=== PATIENT | female | born 1960 | race Caucasian/White ===

== ENCOUNTER 2016-08-07 06:44 | Emergency (ER) | payer OTHER ==
[2016-08-07] MEDS ORDERED: IPRATROPIUM/ALBUTEROL 0.5-2.5 MG/3 ML AMPUL NEB ONE (08:15)
[2016-08-07] MEDS ORDERED: PREDNISONE 20 MG TABLET PO ONE (08:15)
[2016-08-07] MEDS ORDERED: NORMAL SALINE 1000 ML 1,000 ML IV ONE (08:17)
[2016-08-07] MEDS ORDERED: ONDANSETRON HCL INJ/PF 4 MG/2 ML SDV IV ONE (08:17)
--- NOTE | 2016-08-07 08:18 | ER Document Report ---
ED General - General Chief Complaint: General Weakness Stated Complaint: WEAKNESS/CANT EAT Time Seen by Provider: 08/07/16 08:09 Mode of Arrival: Ambulatory Information source: Patient Notes: Patient presents complaining of occasionally productive cough, generalized weakness, and feeling sick off and on for the past 2 weeks. Patient complains of nausea with decreased appetite. Patient denies any vomiting, diarrhea, or abdominal pain. Patient reports subjective fever 2 days ago but none since then. TRAVEL OUTSIDE OF THE [place] IN LAST 30 DAYS: No - HPI Onset: Other - 2 weeks Onset/Duration: Waxing and waning Quality of pain: No pain Pain Level: Denies Associated symptoms: Productive cough - Occasionally, Fever - 2 days ago, Nausea , Weakness. 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 Lives with: Family Family History: Reviewed & Not Pertinent Patient has suicidal ideation: No Patient has homicidal ideation: No - Past Medical History Cardiac Medical History: Pulmonary Medical History: Reports: Hx Asthma, Hx COPD Neurological Medical History: Endocrine Medical History: Reports: Hx Diabetes Mellitus Type 2 Renal/ Medical History: Denies: Hx Peritoneal Dialysis Musculoskeltal Medical History: Past Surgical History: Reports: Hx Section, Hx Orthopedic Surgery - Immunizations Hx Pneumococcal Vaccination: 03/29/12 Review of Systems - Review of Systems Constitutional: Fever - 2 days ago, Weakness EENT: Nose congestion Cardiovascular: No symptoms reported. denies: Chest pain Respiratory: Cough, Sputum, Wheezing. denies: Short of breath Gastrointestinal: Nausea. denies: Abdominal pain, Diarrhea, Vomiting Genitourinary: No symptoms reported. denies: Dysuria, Discharge, Flank pain Female Genitourinary: No symptoms reported Musculoskeletal: No symptoms reported. denies: Back pain Skin: No symptoms reported Hematologic/Lymphatic: No symptoms reported Neurological/Psychological: No symptoms reported Physical Exam - Vital signs Vitals: Temp Pulse Resp BP Pulse Ox 98.6 F 106 H 18 118/78 93 08/07/16 06:48 08/07/16 06:48 08/07/16 06:48 08/07/16 06:48 08/07/16 06:48 - General General appearance: Appears well, Alert In distress: None - HEENT Head: Normocephalic, Atraumatic Eyes: Normal Conjunctiva: Normal Nasal: Swelling, Clear rhinorrhea Mouth/Lips: Normal Mucous membranes: Normal Pharynx: Normal Neck: Normal, Supple. No: Lymphadenopathy, Meningismus - Respiratory Respiratory status: No respiratory distress Chest status: Nontender Breath sounds: Nonproductive cough, Wheezing Chest palpation: Normal - Cardiovascular Rhythm: Regular Heart sounds: S1 appreciated, S2 appreciated Murmur: No - Abdominal Inspection: Normal Distension: No distension Bowel sounds: Normal Tenderness: Nontender Organomegaly: No organomegaly - Back Back: Normal, Nontender. No: CVA tenderness - Extremities General upper extremity: Normal inspection, Normal strength General lower extremity: Normal inspection, Normal strength - Neurological Neuro grossly intact: Yes Cognition: Normal Nina Coma Scale Eye Opening: Spontaneous Nina Coma Scale Verbal: Oriented [place] Coma Scale Motor: Obeys Commands Nina Coma Scale Total: 15 - Psychological Associated symptoms: Normal affect, Normal mood - Skin Skin Temperature: Warm Skin Moisture: Dry Skin Color: Normal Course - Re-evaluation Re-evalutation: 08/07/16 09:30 Patient with decreased wheezing bilaterally and improved air movement. Wheezing continues with coughing. Patient reports that nausea has resolved. Discussed worsening signs or symptoms that patient should return immediately for. Patient verbalized understanding and agrees with plan of care. Consult with Dr. wheeler regarding patient presentation and diagnostic evaluation. EKG reviewed. Agrees with discharge plan of care 08/07/16 09:31 - Vital Signs Vital signs: Temp Pulse Resp BP Pulse Ox 98.6 F 106 H 18 118/78 93 08/07/16 06:48 08/07/16 06:48 08/07/16 06:48 08/07/16 06:48 08/07/16 06:48 - Laboratory Result Diagrams: 08/07/16 08:27 08/07/16 08:27 Laboratory results interpreted by me: 08/07/16 08/07/16 08:27 08:27 RBC 5.48 H Hgb 16.1 H Hct 49.1 H RDW 14.7 H Plt Count 134 L Monocytes % 13.8 H Glucose 124 H Labs- Entire Visit 08/07/16 08/07/16 08/07/16 08:27 08:27 08:27 WBC 6.0 RBC 5.48 H Hgb 16.1 H Hct 49.1 H MCV 90 MCH 29.4 MCHC 32.8 RDW 14.7 H Plt Count 134 L Seg Neutrophils % 70.9 Lymphocytes % 14.5 Monocytes % 13.8 H Eosinophils % 0.3 Basophils % 0.5 Absolute Neutrophils 4.3 Absolute Lymphocytes 0.9 Absolute Monocytes 0.8 Absolute Eosinophils 0.0 Absolute Basophils 0.0 Sodium 141.3 Potassium 4.3 Chloride 101 Carbon Dioxide 27 Anion Gap 13 BUN 16 Creatinine 0.61 Est GFR ( Amer) > 60 Est GFR (Non-Af Amer) > 60 Glucose 124 H Calcium 9.7 Total Bilirubin 0.6 Direct Bilirubin 0.4 Indirect Bilirubin Not Reportable Neonat Total Bilirubin Not Reportable AST 33 ALT 35 Alkaline Phosphatase 68 Total Protein 7.2 Albumin 4.5 Urine Color STRAW Urine Appearance CLEAR Urine pH 5.0 Ur Specific Monitor 1.005 Urine Protein NEGATIVE Urine Glucose (UA) NEGATIVE Urine Ketones NEGATIVE Urine Blood NEGATIVE Urine Nitrite NEGATIVE Urine Bilirubin NEGATIVE Urine Urobilinogen NEGATIVE Ur Leukocyte Esterase NEGATIVE Urine WBC (Auto) 2 Urine RBC (Auto) 0 Urine Mucus (Auto) RARE Urine Ascorbic Acid NEGATIVE 08/07/16 09:39 - Diagnostic Test Radiology reviewed: Reports reviewed Discharge - Discharge Clinical Impression: Nausea, Weakness COPD (chronic obstructive pulmonary disease) Qualifiers: COPD type: unspecified COPD Qualified Code(s): J44.9 - Chronic obstructive pulmonary disease, unspecified Condition: Stable Disposition: HOME, SELF-CARE Instructions: Chronic Obstructive Lung Disease ([facility]), Steroid Medication, Inhaled Bronchodilators ([facility]), Antinausea Medication ([facility]) Additional Instructions: Return immediately for any new or worsening symptoms Followup with your primary care provider, call tomorrow to make a followup appointment Prescriptions: Albuterol Sulfate [Ventolin Hfa] 2 puff IH Q4HP PRN #17 gm PRN Reason: Ondansetron HCl [Zofran 4 mg Tablet] 1 - 2 tab PO Q6 PRN #15 tablet PRN Reason: Prednisone [Deltasone 20 mg Tablet] 2 tab PO DAILY 4 Days Forms: Return to Work Referrals: RANJEET KAMARA PA-C [Primary Care Provider] - Follow up tomorrow
[2016-08-07] MEDS: ALBUTEROL SULFATE 0.083% NEB 2.5 MG/3 ML AMPUL NEB SCH ×2 (08:35→09:15)
[2016-08-07 08:47] LABS: ABSOLUTE LYMPHOCYTES (AUTO) 0.9 10^3/uL (0.5-4.7); ABSOLUTE MONOCYTES (AUTO) 0.8 10^3/uL (0.1-1.4); ABSOLUTE NEUT (AUTO) 4.3 10^3/uL (1.7-8.2); BASOPHILS % (AUTO) 0.5 % (0-2); EOSINOPHILS % (AUTO) 0.3 % (0-6); HEMATOCRIT 49.1 % (36.0-47.0); HEMOGLOBIN 16.1 g/dL (12.0-15.5); HGB HCT DIFFERENCE -0.8; LYMPHOCYTES % (AUTO) 14.5 % (13-45); MEAN CORPUSCULAR HEMOGLOBIN 29.4 pg (27.0-33.4); MEAN CORPUSCULAR HGB CONC 32.8 g/dL (32.0-36.0); MEAN CORPUSCULAR VOLUME 90 fl (80-97); MONOCYTES % (AUTO) 13.8 % (3-13); RED BLOOD COUNT 5.48 10^6/uL (3.72-5.28); RED CELL DISTRIBUTION WIDTH 14.7 % (11.5-14.0); SEGMENTED NEUTROPHILS % (AUTO) 70.9 % (42-78)
[2016-08-07 08:55] LABS: APPEARANCE,URINE CLEAR; BILIRUBIN,URINE NEGATIVE (NEGATIVE); GLUCOSE, URINE NEGATIVE (NEGATIVE); KETONES,URINE NEGATIVE (NEGATIVE); LEUKOCYTE ESTERASE,URINE NEGATIVE (NEGATIVE); NITRITE,URINE NEGATIVE (NEGATIVE); PROTEIN,URINE NEGATIVE (NEGATIVE); URINE SPECIFIC GRAVITY 1.005; UROBILINOGEN,URINE NEGATIVE mg/dL (<2.0)
[2016-08-07 09:04] LABS: ALANINE AMINOTRANSFERASE 35 U/L (9-52); ALBUMIN 4.5 g/dL (3.5-5.0); ALKALINE PHOSPHATASE 68 U/L (38-126); ANION GAP 13 (5-19); ASPARTATE AMINO TRANSFERASE 33 U/L (14-36); BILIRUBIN,DIRECT 0.4 mg/dL (0.0-0.4); BILIRUBIN,TOTAL 0.6 mg/dL (0.2-1.3); BLOOD UREA NITROGEN 16 mg/dL (7-20); CALCIUM 9.7 mg/dL (8.4-10.2); CARBON DIOXIDE 27 mmol/L (22-30); CHLORIDE 101 mmol/L (98-107); CREATININE RESULT 0.61 mg/dL (0.52-1.25); GLUCOSE 124 mg/dL (75-110); POTASSIUM 4.3 mmol/L (3.6-5.0); SODIUM 141.3 mmol/L (137-145); TOTAL PROTEIN 7.2 g/dL (6.3-8.2)
[2016-08-07 09:43] VITALS: BP 92/61
--- NOTE | 2016-08-07 11:32 | EKG REPORT ---
SEVERITY:- ABNORMAL ECG - SINUS RHYTHM RIGHT ATRIAL ABNORMALITY LEFT AXIS DEVIATION ST DEPRESSION, CONSIDER ISCHEMIA, INF LEADS : Confirmed by: Simeon Peres 07-Aug-2016 11:31:16
== END 2016-08-07 09:43 | disposition home or self-care (01) ==
LOC: ER 06:44
DX: R53.1 Weakness (principal); R11.0 Nausea; J44.9 Chronic obstructive pulmonary disease, unspecified; R05 Cough; R63.0 Anorexia; F17.200 Nicotine dependence, unspecified, uncomplicated; E11.9 Type 2 diabetes mellitus without complications; R09.81 Nasal congestion; J34.89 Other specified disorders of nose and nasal sinuses
CPT/HCPCS: 93005; 94640 ×2; 99285; 96374; 36415; 85025; 80053; 81001; 71020; 93010; J7512; J2405; J7030; J7620

== ENCOUNTER 2017-07-16 10:34 | Emergency (ER) | payer OTHER ==
--- NOTE | 2017-07-16 11:02 | ER Document Report ---
ED Medical Screen (RME) - General Chief Complaint: Chest Pain Stated Complaint: CHEST PAIN Time Seen by Provider: 07/16/17 10:52 Notes: Patient presents with intermittent right sided chest wall pain that radiates into her right scapula that started approximately the 13th of this month of June. Patient states that she also has more shortness of breath than normal on exertion. No history of heart attack or strokes. She has no family history of heart or strokes either. She does not take any blood thinners. She has not had any recent fevers or illnesses. She is a daily smoker and has been having a cough but this is baseline for her. She has not experienced this type of pain before and was unable to get an appointment with for evaluation. I have greeted and performed a rapid initial assessment of this patient. A comprehensive ED assessment and evaluation of the patient, analysis of test results and completion of the medical decision making process will be conducted by additional ED providers. PHYSICAL EXAMINATION: GENERAL: Well-appearing, well-nourished and in no acute distress. HEAD: Atraumatic, normocephalic. EYES: Pupils equal round extraocular movements intact, conjunctiva are normal. ENT: Nares patent NECK: Normal range of motion LUNGS: No respiratory distress Musculoskeletal: Normal range of motion NEUROLOGICAL: Normal speech, normal gait. PSYCH: Normal mood, normal affect. SKIN: Warm, Dry, normal turgor, no rashes or lesions noted. TRAVEL OUTSIDE OF THE [place] IN LAST 30 DAYS: No - Related Data Allergies/Adverse Reactions: No Known Allergies Allergy (Verified 07/16/17 10:51) Past Medical History - Social History Chew tobacco use (# tins/day): No Frequency of alcohol use: None Drug Abuse: None - Past Medical History Cardiac Medical History: Pulmonary Medical History: Reports: Hx Asthma, Hx COPD Neurological Medical History: Endocrine Medical History: Reports: Hx Diabetes Mellitus Type 2 Renal/ Medical History: Denies: Hx Peritoneal Dialysis Musculoskeltal Medical History: Past Surgical History: Reports: Hx Section, Hx Orthopedic Surgery Physical Exam - Vital signs Vitals: Temp Pulse Resp BP Pulse Ox 98.7 F 82 18 124/75 96 07/16/17 10:47 07/16/17 10:47 07/16/17 10:47 07/16/17 10:47 07/16/17 10:47 Course - Vital Signs Vital signs: Temp Pulse Resp BP Pulse Ox 98.7 F 82 18 124/75 96 07/16/17 10:47 07/16/17 10:47 07/16/17 10:47 07/16/17 10:47 07/16/17 10:47
[2017-07-16] MEDS ORDERED: ASPIRIN 81 MG TABLET, CHEWABLE PO ONE (11:12)
--- NOTE | 2017-07-16 11:14 | ER Document Report ---
ED Cardiac - General Chief Complaint: Chest Pain Stated Complaint: CHEST PAIN Time Seen by Provider: 07/16/17 10:52 Mode of Arrival: Ambulatory Information source: Patient Notes: Patient presents complaining of left-sided chest pain that radiates to left shoulder off and on for the past week. Patient states that she typically has about 2 episodes of chest pain the last about 30 minutes. Patient states that she does have some shortness of breath on exertion and reports she has chronic cough due to her COPD. Patient states that she came in today because she was unable to get an appointment with her primary doctor until next week. Patient denies any fever. Patient denies any nausea or vomiting. Patient presently denies any chest pain symptoms at this time. TRAVEL OUTSIDE OF THE [place] IN LAST 30 DAYS: No - HPI Patient complains to provider of: Chest pain Chest pain location: Under breast Quality of pain: Tightness Pain level currently: 3 Chest pain precipitating factors: At Rest Cardiac risk factors: Hypertension, Smoker Associated symptoms: Shortness of breath - With exertion. 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 denies: Fever, Recent illness EENT: No symptoms reported Cardiovascular: Chest pain, Orthopnea. denies: Dizziness Respiratory: Cough, Short of breath - With exertion Gastrointestinal: No symptoms reported. denies: Abdominal pain, Diarrhea, Nausea, Vomiting Genitourinary: No symptoms reported Female Genitourinary: No symptoms reported Musculoskeletal: No symptoms reported. denies: Back pain Skin: No symptoms reported Hematologic/Lymphatic: No symptoms reported Neurological/Psychological: No symptoms reported Physical Exam - Vital signs Vitals: Temp Pulse Resp BP Pulse Ox 98.7 F 82 18 124/75 96 07/16/17 10:47 07/16/17 10:47 07/16/17 10:47 07/16/17 10:47 07/16/17 10:47 - General General appearance: Appears well, Alert In distress: None - HEENT Head: Normocephalic, Atraumatic Eyes: Normal Conjunctiva: Normal Nasal: Normal Mouth/Lips: Normal Mucous membranes: Normal Pharynx: Normal Neck: Normal, Supple. No: Lymphadenopathy - Respiratory Respiratory status: No respiratory distress Chest status: Nontender Breath sounds: Normal. No: Rales, Rhonchi, Stridor, Wheezing Chest palpation: Normal - Cardiovascular Rhythm: Regular Heart sounds: S1 appreciated, S2 appreciated Murmur: No - Abdominal Inspection: Normal Distension: No distension Bowel sounds: Normal Tenderness: Nontender Organomegaly: No organomegaly - Back Back: Normal, Nontender. No: CVA tenderness - Extremities General upper extremity: Normal inspection, Normal strength General lower extremity: Normal inspection, Normal strength. No: Edema - Neurological Neuro grossly intact: Yes Cognition: Normal Nina Coma Scale Eye Opening: Spontaneous [place] Coma Scale Verbal: Oriented Nina Coma Scale Motor: Obeys Commands Nina Coma Scale Total: 15 - Psychological Associated symptoms: Normal affect, Normal mood - Skin Skin Temperature: Warm Skin Moisture: Dry Skin Color: Normal Course - Re-evaluation Re-evalutation: 07/16/17 13:51 Patient continues to deny any chest pain symptoms, vital signs stable. Patient without any dyspnea at this time. Patient denies any worsening of cough or sputum production. Patient states she does have her inhaler and nebulizer medications at home. Consulted with Dr. Verma regarding patient presentation , reviewed diagnostic test results. Agrees with discharge plan of care. The patient has atypical chest pain as the patient's chest pain is not suggestive of pulmonary embolus, cardiac ischemia, aortic dissection, or other serious etiology. Given the extremely low risk of these diagnoses for the test in evaluation for these possibilities does not appear to be indicated at this time. Patient has been instructed to return if the symptoms worsen or change in any way. Patient with a heart score of 2 for age and risk factors. - Vital Signs Vital signs: Temp Pulse Resp BP Pulse Ox 98.7 F 82 18 118/70 94 07/16/17 10:47 07/16/17 10:47 07/16/17 14:01 07/16/17 14:01 07/16/17 14:01 - Laboratory Result Diagrams: 07/16/17 11:25 07/16/17 12:52 Laboratory results interpreted by me: 07/16/17 07/16/17 11:25 12:52 RDW 15.3 H Creatine Kinase 149 H Labs- Entire Visit 07/16/17 07/16/17 07/16/17 11:25 11:25 11:25 WBC 7.7 RBC 4.97 Hgb 15.1 Hct 44.0 MCV 88 MCH 30.3 MCHC 34.3 RDW 15.3 H Plt Count 227 Seg Neutrophils % 63.4 Lymphocytes % 26.5 Monocytes % 8.3 Eosinophils % 0.6 Basophils % 1.2 Absolute Neutrophils 4.9 Absolute Lymphocytes 2.0 Absolute Monocytes 0.6 Absolute Eosinophils 0.0 Absolute Basophils 0.1 Sodium Cancelled Potassium Cancelled Chloride Cancelled Carbon Dioxide Cancelled Anion Gap Cancelled BUN Cancelled Creatinine Cancelled Est GFR ( Amer) Cancelled Est GFR (Non-Af Amer) Cancelled Glucose Cancelled Calcium Cancelled Magnesium Cancelled Total Bilirubin Cancelled Direct Bilirubin Cancelled Neonat Total Bilirubin Cancelled Neonat Direct Bilirubin Cancelled Neonat Indirect Bili Cancelled AST Cancelled ALT Cancelled Alkaline Phosphatase Cancelled Creatine Kinase Cancelled CK-MB (CK-2) 1.98 Troponin I < 0.012 Total Protein Cancelled Albumin Cancelled 07/16/17 12:52 WBC RBC Hgb Hct MCV MCH MCHC RDW Plt Count Seg Neutrophils % Lymphocytes % Monocytes % Eosinophils % Basophils % Absolute Neutrophils Absolute Lymphocytes Absolute Monocytes Absolute Eosinophils Absolute Basophils Sodium 144.3 Potassium 4.3 Chloride 105 Carbon Dioxide 28 Anion Gap 11 BUN 14 Creatinine 0.63 Est GFR ( Amer) > 60 Est GFR (Non-Af Amer) > 60 Glucose 104 Calcium 9.8 Magnesium 2.3 Total Bilirubin 0.3 Direct Bilirubin 0.3 Neonat Total Bilirubin Not Reportable Neonat Direct Bilirubin Not Reportable Neonat Indirect Bili Not Reportable AST 25 ALT 28 Alkaline Phosphatase 59 Creatine Kinase 149 H CK-MB (CK-2) Troponin I Total Protein 6.7 Albumin 4.2 - Diagnostic Test Radiology reviewed: Reports reviewed - EKG Interpretation by Me EKG shows normal: Sinus rhythm Rate: Normal Discharge - Discharge Clinical Impression: COPD exacerbation Chest pain Qualifiers: Chest pain type: unspecified Qualified Code(s): R07.9 - Chest pain, unspecified Condition: Stable Disposition: HOME, SELF-CARE Instructions: Chronic Obstructive Lung Disease ([facility]), Chest Pain of Unclear Cause ([facility]), Steroid Medication Additional Instructions: Return immediately for any new or worsening symptoms Followup with your primary care provider, call tomorrow to make a followup appointment Follow-up with a party plan demonstrator for further evaluation, call tomorrow for an appointment Prescriptions: Prednisone [Deltasone 20 mg Tablet] 2 tab PO DAILY 5 Days tablet Forms: Smoking Cessation Education, Return to Work Referrals: RANJEET KAMARA PA-C [Primary Care Provider] - Follow up as needed KINJAL PALACIO MD [ACTIVE STAFF] - Follow up as needed
[2017-07-16 11:45] LABS: ABSOLUTE BASOPHILS # (AUTO) 0.1 10^3/uL (0.0-0.2); ABSOLUTE MONOCYTES (AUTO) 0.6 10^3/uL (0.1-1.4); ABSOLUTE NEUT (AUTO) 4.9 10^3/uL (1.7-8.2); BASOPHILS % (AUTO) 1.2 % (0-2); EOSINOPHILS % (AUTO) 0.6 % (0-6); HEMOGLOBIN 15.1 g/dL (12.0-15.5); LYMPHOCYTES % (AUTO) 26.5 % (13-45); MEAN CORPUSCULAR HEMOGLOBIN 30.3 pg (27.0-33.4); MEAN CORPUSCULAR HGB CONC 34.3 g/dL (32.0-36.0); MEAN CORPUSCULAR VOLUME 88 fl (80-97); MONOCYTES % (AUTO) 8.3 % (3-13); PLATELET COUNT 227 10^3/uL (150-450); RED BLOOD COUNT 4.97 10^6/uL (3.72-5.28); RED CELL DISTRIBUTION WIDTH 15.3 % (11.5-14.0); SEGMENTED NEUTROPHILS % (AUTO) 63.4 % (42-78); TOTAL CELLS COUNTED % (AUTO) 100 %; WHITE BLOOD COUNT 7.7 10^3/uL (4.0-10.5)
[2017-07-16 12:19] LABS: CREATINE KINASE MB 1.98 ng/mL (<4.55)
[2017-07-16 12:20] LABS: TROPONIN I < 0.012 ng/mL
--- NOTE | 2017-07-16 12:30 | RADIOLOGY REPORT (SQ) ---
EXAM DESCRIPTION: CHEST 2 VIEWS COMPLETED DATE/TIME: 07/16/2017 12:16 pm REASON FOR STUDY: cp COMPARISON: 08/07/2016. NUMBER OF VIEWS: Two view. TECHNIQUE: Frontal and lateral radiographic views of the chest acquired. LIMITATIONS: None. FINDINGS: LUNGS AND PLEURA: No opacities, masses or pneumothorax. No pleural effusion. Attenuated bl ood vessels and flattened gillian-diaphragms. MEDIASTINUM AND HILAR STRUCTURES: No masses. No contour abnormalities. HEART AND VASCULAR STRUCTURES: Heart normal in size and contour. No evidence for failure. BONES: No acute findings. HARDWARE: None in the chest. OTHER: No other significant finding. IMPRESSION: COPD. NO ACUTE RADIOGRAPHIC FINDING IN THE CHEST. TECHNICAL DOCUMENTATION: JOB ID: [id number] [employer] All Rights Reserved Reading location - IP/workstation name: [email or web address]
[2017-07-16 13:27] LABS: ALANINE AMINOTRANSFERASE 28 U/L (9-52); ALBUMIN 4.2 g/dL (3.5-5.0); ALKALINE PHOSPHATASE 59 U/L (38-126); ANION GAP 11 (5-19); ASPARTATE AMINO TRANSFERASE 25 U/L (14-36); BILIRUBIN,DIRECT 0.3 mg/dL (0.0-0.4); BILIRUBIN,TOTAL 0.3 mg/dL (0.2-1.3); BLOOD UREA NITROGEN 14 mg/dL (7-20); CALCIUM 9.8 mg/dL (8.4-10.2); CARBON DIOXIDE 28 mmol/L (22-30); CHLORIDE 105 mmol/L (98-107); CREATINE KINASE 149 U/L (30-135); GLUCOSE 104 mg/dL (75-110); POTASSIUM 4.3 mmol/L (3.6-5.0); SODIUM 144.3 mmol/L (137-145); TOTAL PROTEIN 6.7 g/dL (6.3-8.2)
[2017-07-16 14:16] VITALS: BP 118/70
--- NOTE | 2017-07-16 21:12 | EKG REPORT ---
SEVERITY:- OTHERWISE NORMAL ECG - SINUS RHYTHM LEFT AXIS DEVIATION : Confirmed by: Simeon Peres 16-Jul-2017 21:12:06
== END 2017-07-16 14:15 | disposition home or self-care (01) ==
LOC: ER 10:34
DX: J44.1 Chronic obstructive pulmonary disease with (acute) exacerbation (principal); R07.9 Chest pain, unspecified; M25.512 Pain in left shoulder; F17.200 Nicotine dependence, unspecified, uncomplicated; E11.9 Type 2 diabetes mellitus without complications
CPT/HCPCS: 36415; 71046; 80053; 82550; 82553; 83735; 84484; 85025; 93005; 93010; 99285

== ENCOUNTER → 2018-06-14 | Outpatient (CLI) | payer OTHER ==
--- NOTE | 2018-06-14 10:31 | RADIOLOGY REPORT (SQ) ---
EXAM DESCRIPTION: CHEST PA/LATERAL COMPLETED DATE/TIME: 06/14/2018 10:18 am REASON FOR STUDY: COPD EXACERBATION COMPARISON: 07/16/2017 EXAM PARAMETERS: NUMBER OF VIEWS: two views TECHNIQUE: Digital Frontal and Lateral radiographic views of the chest acquired. RADIATION DOSE: NA LIMITATIONS: none FINDINGS: LUNGS AND PLEURA: COPD. Mildly prominent interstitial markings in the lungs, may be on a n acute inflammatory basis. . No acute pulmonary consolidation. No pneumothorax or pleural effusio n. MEDIASTINUM AND HILAR STRUCTURES: No masses or contour abnormalities. HEART AND VASCULAR STRUCTURES: Heart normal size. No evidence for failure. BONES: No acute findings. HARDWARE: None in the chest. OTHER: No other significant finding. IMPRESSION: 1. As on the prior study dated 07/16/2017, findings of COPD. The interstitial markings in the lungs are mildly prominent, findings may be on an acute inflammatory basis. TECHNICAL DOCUMENTATION: JOB ID: [id number] [employer]- All Rights Reserved Reading location - IP/workstation name: [email or web address]
== END ==
LOC: OD 09:54
PROVIDERS: ATTEND Physician Assistant
DX: J44.1 Chronic obstructive pulmonary disease with (acute) exacerbation (principal)
CPT/HCPCS: 71046

== ENCOUNTER 2018-06-19 20:43 | Emergency (ER) | payer OTHER ==
[2018-06-19 21:42] LABS: ABSOLUTE LYMPHOCYTES (AUTO) 0.7 10^3/uL (0.5-4.7); ABSOLUTE MONOCYTES (AUTO) 0.7 10^3/uL (0.1-1.4); ABSOLUTE NEUT (AUTO) 10.8 10^3/uL (1.7-8.2); BASOPHILS % (AUTO) 0.2 % (0-2); HEMATOCRIT 45.3 % (36.0-47.0); HEMOGLOBIN 15.2 g/dL (12.0-15.5); LYMPHOCYTES % (AUTO) 5.8 % (13-45); MEAN CORPUSCULAR HEMOGLOBIN 29.8 pg (27.0-33.4); MEAN CORPUSCULAR HGB CONC 33.6 g/dL (32.0-36.0); MEAN CORPUSCULAR VOLUME 89 fl (80-97); MONOCYTES % (AUTO) 5.8 % (3-13); PLATELET COUNT 364 10^3/uL (150-450); RED BLOOD COUNT 5.11 10^6/uL (3.72-5.28); RED CELL DISTRIBUTION WIDTH 15.1 % (11.5-14.0); SEGMENTED NEUTROPHILS % (AUTO) 88.2 % (42-78); TOTAL CELLS COUNTED % (AUTO) 100 %; WHITE BLOOD COUNT 12.3 10^3/uL (4.0-10.5)
[2018-06-19 22:00] LABS: ALANINE AMINOTRANSFERASE 23 U/L (9-52); ALBUMIN 4.2 g/dL (3.5-5.0); ALKALINE PHOSPHATASE 71 U/L (38-126); ANION GAP 11 (5-19); ASPARTATE AMINO TRANSFERASE 21 U/L (14-36); BILIRUBIN,DIRECT 0.1 mg/dL (0.0-0.4); BILIRUBIN,TOTAL 0.3 mg/dL (0.2-1.3); BLOOD UREA NITROGEN 19 mg/dL (7-20); CALCIUM 10.2 mg/dL (8.4-10.2); CARBON DIOXIDE 29 mmol/L (22-30); CHLORIDE 103 mmol/L (98-107); CREATINE KINASE 50 U/L (30-135); GLUCOSE 152 mg/dL (75-110); SODIUM 142.7 mmol/L (137-145); TOTAL PROTEIN 7.3 g/dL (6.3-8.2)
[2018-06-19 22:08] LABS: APPEARANCE,URINE CLEAR; BILIRUBIN,URINE NEGATIVE (NEGATIVE); COLOR,URINE YELLOW; GLUCOSE, URINE 50 mg/dL (NEGATIVE); KETONES,URINE NEGATIVE (NEGATIVE); LEUKOCYTE ESTERASE,URINE NEGATIVE (NEGATIVE); NITRITE,URINE NEGATIVE (NEGATIVE); PROTEIN,URINE NEGATIVE (NEGATIVE); URINE SPECIFIC GRAVITY 1.019; UROBILINOGEN,URINE NEGATIVE mg/dL (<2.0)
--- NOTE | 2018-06-19 22:21 | RADIOLOGY REPORT (SQ) ---
EXAM DESCRIPTION: XR CHEST 1 VIEW COMPLETED DATE/TME: 06/19/2018 21:10 CLINICAL HISTORY: 57 years, Female, recent pna dx COMPARISON: 06/14/2018 chest NUMBER OF VIEWS: 1 TECHNIQUE: Portable chest LIMITATIONS: None FINDINGS: Heart size normal. Lungs are hyperinflated but clear. No pneumothorax. IMPRESSION: Underlying hyperinflation. Lungs are clear copyright 2010 [employer]- All Rights Reserved
[2018-06-19] MEDS ORDERED: PREDNISONE 20 MG TABLET PO ONE (23:44)
[2018-06-19] MEDS ORDERED: BENZONATATE 100 MG CAPSULE PO ONE (23:44)
--- NOTE | 2018-06-19 23:45 | ER Document Report ---
ED General - General Chief Complaint: Breathing Difficulty Stated Complaint: DIFFICULTY BREATHING Time Seen by Provider: 06/19/18 21:47 Primary Care Provider: RANJEET KAMARA PA-C [Primary Care Provider] - Follow up tomorrow Notes: Patient is a 57-year-old female with a past medical history of COPD, 2 L oxygen dependency at baseline, presents complaining of 2 weeks of cough, shortness of breath, sinus congestion and feeling generally unwell. Symptoms started gradually, have been constant since that time. She has seen her primary care doctor regarding this concern, was given intramuscular injection of steroids and antibiotics with states this has not improved her symptoms. Her main concern is the persistent fever cough as well as the failure of her symptoms to resolve over the past 2 weeks. She has not had fever. Denies any increased sputum production. No hemoptysis. She does continue to smoke. She has been using nebulizers with minimal improvement of symptoms. Smoking and exertion seem to worsen her symptoms. TRAVEL OUTSIDE OF THE [place] IN LAST 30 DAYS: No - Related Data Allergies/Adverse Reactions: No Known Allergies Allergy (Verified 07/16/17 10:51) Past Medical History - General Information source: Patient - Social History Smoking Status: Current Every Day Smoker Chew tobacco use (# tins/day): No Frequency of alcohol use: None Drug Abuse: None Lives with: Spouse/Significant other Family History: Reviewed & Not Pertinent Patient has suicidal ideation: No Patient has homicidal ideation: No - Past Medical History Cardiac Medical History: Pulmonary Medical History: Reports: Hx Asthma, Hx COPD Neurological Medical History: Endocrine Medical History: Reports: Hx Diabetes Mellitus Type 2 Renal/ Medical History: Denies: Hx Peritoneal Dialysis Musculoskeletal Medical History: Past Surgical History: Reports: Hx Section, Hx Orthopedic Surgery - Immunizations Hx Pneumococcal Vaccination: 03/29/12 Review of Systems - Review of Systems Notes: Constitutional: Negative for fever. HENT: Negative for sore throat. Eyes: Negative for visual changes. Cardiovascular: Negative for chest pain. Respiratory: Positive for shortness of breath and cough Gastrointestinal: Negative for abdominal pain, vomiting or diarrhea. Genitourinary: Negative for dysuria. Musculoskeletal: Negative for back pain. Skin: Negative for rash. Neurological: Negative for headaches, weakness or numbness. 10 point ROS negative except as marked above and in HPI. Physical Exam - Vital signs Vitals: Temp Pulse Resp BP Pulse Ox 98.5 F 96 24 H 134/75 H 95 06/19/18 20:52 06/19/18 20:52 06/19/18 20:52 06/19/18 20:52 06/19/18 20:52 Interpretation: Tachypneic Notes: PHYSICAL EXAMINATION: GENERAL: Well-appearing, well-nourished and in no acute distress. HEAD: Atraumatic, normocephalic. EYES: Pupils equal round and reactive to light, extraocular movements intact, sclera anicteric, conjunctiva are normal. ENT: nares patent, oropharynx clear without exudates. Moderately dry mucous membranes. NECK: Normal range of motion, supple without lymphadenopathy LUNGS: Breath sounds clear to auscultation bilaterally and equal. Scant expiratory wheezing in all lung samuel. HEART: Regular rate and rhythm without murmurs ABDOMEN: Soft, nontender, normoactive bowel sounds. No guarding, no rebound. No masses appreciated. EXTREMITIES: Normal range of motion, no pitting or edema. No cyanosis. NEUROLOGICAL: No focal neurological deficits. Moves all extremities spontaneously and on command. PSYCH: Normal mood, normal affect. SKIN: Warm, Dry, normal turgor, no rashes or lesions noted. Course - Re-evaluation Re-evalutation: 06/19/18 23:44 Patient presents with a mild exacerbation of their baseline COPD. Mild wheezing at time of presentation but vitals do not show significant hypoxemia or tachypnea. No retractions. Patient did clinically improve after receiving nebulizers here in the emergency department. Chest x-ray without evidence of an acute pneumonia. Laboratories do not show acute kidney injury or significant leukocytosis. Patient able to ambulate without any respiratory distress. Based on patient's overall reassuring assessment, I believe they are stable for outpatient management with steroids. Patient has nebulizers at home. I do not suspect an acute alternative pathology at this time based on history and exam including acute pulmonary embolus, ACS, pneumothorax, or aortic dissection. At this time will discharge with return precautions and follow-up recommendations. Verbal discharge instructions given a the bedside and opportunity for questions given. Medication warnings reviewed. Patient is in agreement with this plan and has verbalized understanding of return precautions and the need for primary care follow-up in the next 24-72 hours. - Vital Signs Vital signs: Temp Pulse Resp BP Pulse Ox 98.5 F 96 20 105/61 95 06/19/18 20:52 06/19/18 20:52 06/20/18 00:01 06/20/18 00:00 06/20/18 00:01 - Laboratory Result Diagrams: 06/19/18 21:23 06/19/18 21:23 Laboratory results interpreted by me: 06/19/18 06/19/18 06/19/18 21:23 21:23 21:44 WBC 12.3 H RDW 15.1 H Seg Neutrophils % 88.2 H Lymphocytes % 5.8 L Absolute Neutrophils 10.8 H Glucose 152 H Urine Glucose (UA) 50 H - Diagnostic Test Radiology reviewed: Image reviewed, Reports reviewed Radiology results interpreted by me: 06/19/18 23:44 Chest x-ray: No acute infiltrate pneumothorax Discharge - Discharge Clinical Impression: COPD exacerbation, Bronchitis Condition: Good Disposition: HOME, SELF-CARE Additional Instructions: You were seen for a COPD exacerbation. Your symptoms improved with treatment here in the emergency department. However, it is very important that you return to the emergency department immediately if you began to have worsening difficulty breathing that does not respond to your normal home nebulizers. You are also being sent home on a five-day course of steroids that you should start taking tomorrow. Please also follow closely with your primary care physician. You should eturn to emergency department if you develop fever greater than 101, persistent cough, persistent vomiting, pass out, or any other symptoms that are concerning to you. Prescriptions: Benzonatate [Tessalon Perles 100 mg Capsule] 100 mg PO Q8HP PRN #40 capsule PRN Reason: Prednisone [Deltasone 20 mg Tablet] 2 tab PO DAILY 5 Days tablet Referrals: RANJEET KAMARA PA-C [Primary Care Provider] - Follow up tomorrow
[2018-06-20 00:24] VITALS: BP 105/61
--- NOTE | 2018-06-20 21:22 | EKG REPORT ---
SEVERITY:- ABNORMAL ECG - SINUS RHYTHM VENTRICULAR PREMATURE COMPLEX NONSPECIFIC T ABNORMALITIES, LATERAL LEADS : Confirmed by: Jeri Del Cid MD 20-Jun-2018 21:21:25
== END 2018-06-20 00:50 | disposition home or self-care (01) ==
LOC: ER 20:43
DX: J44.1 Chronic obstructive pulmonary disease with (acute) exacerbation (principal); Z99.81 Dependence on supplemental oxygen; R05 Cough; R06.02 Shortness of breath; R09.81 Nasal congestion; E11.9 Type 2 diabetes mellitus without complications; F17.200 Nicotine dependence, unspecified, uncomplicated
CPT/HCPCS: 93005; 99285; 36415; 82553; 82550; 85025; 80053; 81001; 71045; 93010; J7512

== ENCOUNTER → 2018-06-24 | Outpatient (CLI) | payer OTHER | LOC: OD 09:25 | PROVIDERS: ATTEND Internal Medicine Critical Care Medicine | DX: J44.9 Chronic obstructive pulmonary disease, unspecified (principal); R06.09 Other forms of dyspnea; R09.02 Hypoxemia; Z72.0 Tobacco use | CPT/HCPCS: 36415; 82103; 82104; 82785; 83880 ==

== ENCOUNTER 2019-04-14 10:16 | Observation (INO) | payer OTHER ==
[2019-04-14] MEDS ORDERED: IPRATROPIUM/ALBUTEROL 0.5-2.5 MG/3 ML AMPUL NEB ONE ×2 (10:27→11:31)
--- NOTE | 2019-04-14 10:30 | ER Document Report ---
ED Medical Screen (RME) - General Chief Complaint: Chest Pain Stated Complaint: CHEST CONGESTION/COUGH/DIFFICULTY BREATHING Time Seen by Provider: 04/14/19 10:20 Primary Care Provider: BARBER MONSON MD [Primary Care Provider] - Follow up as needed Mode of Arrival: Wheelchair Information source: Patient Notes: 58-year-old female with history of COPD presents emergency department with complaints of chest tightness difficulty breathing shortness of breath reports she does not feel good for the past few days.. Denies vomiting diarrhea reports fever for the last 2 days, none today. Patient reports she does use home oxygen on occasion and also has neb treatments. Patient is very tearful. Tachypneic, tight, short of breath with any exertion or talking. O2 sat 93% when she is not talking, drops down to 86% when talking. I have greeted and performed a rapid initial assessment of this patient. A comprehensive ED assessment and evaluation of the patient, analysis of test results and completion of the medical decision making process will be conducted by additional ED providers. TRAVEL OUTSIDE OF THE [place] IN LAST 30 DAYS: No - Related Data Allergies/Adverse Reactions: No Known Allergies Allergy (Verified 04/14/19 10:22) Past Medical History - Past Medical History Cardiac Medical History: Pulmonary Medical History: Reports: Hx Asthma, Hx COPD Neurological Medical History: Endocrine Medical History: Reports: Hx Diabetes Mellitus Type 2 Renal/ Medical History: Denies: Hx Peritoneal Dialysis Musculoskeltal Medical History: Past Surgical History: Reports: Hx Section, Hx Orthopedic Surgery Physical Exam - Vital signs Vitals: Temp Pulse Resp BP Pulse Ox 99.8 F 107 H 24 H 146/83 H 93 04/14/19 10:04/14/19 10:04/14/19 10:04/14/19 10:04/14/19 10:23 Course - Vital Signs Vital signs: Temp Pulse Resp BP Pulse Ox 99.8 F 107 H 24 H 146/83 H 93 04/14/19 10:23 04/14/19 10:23 04/14/19 10:04/14/19 10:23 04/14/19 10:23 Doctor's Discharge - Discharge Referrals: BARBER MONSON MD [Primary Care Provider] - Follow up as needed
[2019-04-14 11:05] LABS: ABSOLUTE LYMPHOCYTES (AUTO) 0.9 10^3/uL (0.5-4.7); ABSOLUTE NEUT (AUTO) 6.2 10^3/uL (1.7-8.2); BASOPHILS % (AUTO) 0.5 % (0-2); EOSINOPHILS % (AUTO) 0.2 % (0-6); HEMATOCRIT 43.2 % (36.0-47.0); HEMOGLOBIN 14.8 g/dL (12.0-15.5); LYMPHOCYTES % (AUTO) 10.6 % (13-45); MEAN CORPUSCULAR HEMOGLOBIN 30.8 pg (27.0-33.4); MEAN CORPUSCULAR HGB CONC 34.2 g/dL (32.0-36.0); MEAN CORPUSCULAR VOLUME 90 fl (80-97); MONOCYTES % (AUTO) 12.8 % (3-13); PLATELET COUNT 161 10^3/uL (150-450); SEGMENTED NEUTROPHILS % (AUTO) 75.9 % (42-78); TOTAL CELLS COUNTED % (AUTO) 100 %; WHITE BLOOD COUNT 8.1 10^3/uL (4.0-10.5)
[2019-04-14 11:35] LABS: ALBUMIN 4.3 g/dL (3.5-5.0); ALKALINE PHOSPHATASE 70 U/L (38-126); ANION GAP 9 (5-19); ASPARTATE AMINO TRANSFERASE 30 U/L (14-36); BILIRUBIN,DIRECT 0.4 mg/dL (0.0-0.4); BILIRUBIN,TOTAL 0.7 mg/dL (0.2-1.3); BLOOD UREA NITROGEN 13 mg/dL (7-20); CALCIUM 9.3 mg/dL (8.4-10.2); CARBON DIOXIDE 28 mmol/L (22-30); CHLORIDE 105 mmol/L (98-107); GLUCOSE 125 mg/dL (75-110); POTASSIUM 3.8 mmol/L (3.6-5.0); TOTAL PROTEIN 7.2 g/dL (6.3-8.2)
--- NOTE | 2019-04-14 11:42 | RADIOLOGY REPORT (SQ) ---
EXAM DESCRIPTION: CHEST SINGLE VIEW COMPLETED DATE/TIME: 04/14/2019 11:33 am REASON FOR STUDY: cp sob hx copd COMPARISON: 06/19/2018 EXAM PARAMETERS: NUMBER OF VIEWS: One view. TECHNIQUE: Single frontal radiographic view of the chest acquired. RADIATION DOSE: NA LIMITATIONS: None. FINDINGS: LUNGS AND PLEURA: Hyperexpansion of the lungs. No acute infiltrate, effusion, or mass. MEDIASTINUM AND HILAR STRUCTURES: No masses. Contour normal. HEART AND VASCULAR STRUCTURES: Heart normal in size. Normal vasculature. BONES: No acute findings. HARDWARE: None in the chest. OTHER: No other significant finding. IMPRESSION: Chronic lung changes with no acute cardiopulmonary findings. TECHNICAL DOCUMENTATION: JOB ID: [id number] [employer]- All Rights Reserved Reading location - IP/workstation name: [email or web address]
[2019-04-14 11:48] LABS: INTERNATIONAL RATION (INR) 1.01; PROTHROMBIN TIME 13.3 SEC (11.4-15.4)
[2019-04-14] MEDS ORDERED: NORMAL SALINE 1000 ML 1,000 ML IV ONE ×2 (11:55→14:37)
[2019-04-14 12:40] LABS: VENOUS BLOOD BASE EXCESS 1.4 mmol/L; VENOUS BLOOD HCO3 26.7 mmol/L (20-32); VENOUS BLOOD PCO2 44.7 mmHg (35-63); VENOUS BLOOD PH 7.39 (7.30-7.42)
[2019-04-14 13:11] LABS: A TYPE INFLUENZA AG NEGATIVE (NEGATIVE); B INFLUENZA AG NEGATIVE (NEGATIVE)
[2019-04-14] MEDS ORDERED: METHYLPREDNISOLONE INJ 125 MG/2 ML SDV IV ONE (13:11)
[2019-04-14] MEDS: MAGNESIUM SULFATE/D5W 1 GM/100 ML RTUPB IV SCH ×3 (13:19→15:58)
[2019-04-14] MEDS ORDERED: LEVOFLOXACIN 750 MG/D5W RTU 750 MG/150 ML RTUPB IV ONE (14:01)
--- NOTE | 2019-04-14 14:46 | ER Document Report ---
ED Respiratory Problem - General Chief Complaint: Chest Pain Stated Complaint: CHEST CONGESTION/COUGH/DIFFICULTY BREATHING Time Seen by Provider: 04/14/19 10:20 Mode of Arrival: Wheelchair Notes: Patient is a 58-year-old female who has had cough and congestion over the last week. Patient with difficulty breathing since yesterday. History of COPD. States fever 103 earlier in the week. Unsure if she was positive for influenza. Patient used her inhaler at home but is still having difficulty breathing. Nonproductive cough. Denies any chest pain. TRAVEL OUTSIDE OF THE [place] IN LAST 30 DAYS: No - Related Data Allergies/Adverse Reactions: No Known Allergies Allergy (Verified 04/14/19 10:22) Past Medical History - General Information source: Patient - Social History Smoking Status: Current Every Day Smoker Family History: Reviewed & Not Pertinent Patient has suicidal ideation: No Patient has homicidal ideation: No - Past Medical History Cardiac Medical History: Pulmonary Medical History: Reports: Hx Asthma, Hx COPD Neurological Medical History: Endocrine Medical History: Reports: Hx Diabetes Mellitus Type 2 Renal/ Medical History: Denies: Hx Peritoneal Dialysis Musculoskeletal Medical History: Past Surgical History: Reports: Hx Section, Hx Orthopedic Surgery - Immunizations Hx Pneumococcal Vaccination: 03/29/12 Review of Systems - Review of Systems -: Yes All other systems reviewed and negative Physical Exam - Vital signs Vitals: Temp Pulse Resp BP Pulse Ox 99.8 F 107 H 24 H 146/83 H 93 04/14/19 10:23 04/14/19 10:23 04/14/19 10:23 04/14/19 10:23 04/14/19 10:23 Interpretation: Normal - General General appearance: Alert In distress: Mild - HEENT Head: Normocephalic, Atraumatic Eyes: Normal Pupils: PERRL - Respiratory Respiratory status: Respiratory distress Chest status: Nontender Breath sounds: Decreased air movement, Wheezing Chest palpation: Normal - Cardiovascular Rhythm: Regular Heart sounds: Normal auscultation Murmur: No - Abdominal Inspection: Normal Distension: No distension Bowel sounds: Normal Tenderness: Nontender Organomegaly: No organomegaly - Back Back: Normal, Nontender - Extremities General upper extremity: Normal inspection, Nontender, Normal color, Normal ROM, Normal temperature General lower extremity: Normal inspection, Nontender, Normal color, Normal ROM, Normal temperature, Normal weight bearing. No: Tez's sign - Neurological Neuro grossly intact: Yes Cognition: Normal Orientation: AAOx4 Nina Coma Scale Eye Opening: Spontaneous [place] Coma Scale Verbal: Oriented Nina Coma Scale Motor: Obeys Commands Happy Jack Coma Scale Total: 15 Speech: Normal Motor strength normal: LUE, RUE, LLE, RLE Sensory: Normal - Psychological Associated symptoms: Normal affect, Normal mood - Skin Skin Temperature: Warm Skin Moisture: Dry Skin Color: Normal Course - Re-evaluation Re-evalutation: 04/14/19 Patient is a 58-year-old female who comes in with difficulty breathing, and wheezing. No evidence for pneumonia on chest x-ray. Patient has received nebulizer treatments, Solu-Medrol and magnesium. However, when she stands, becomes dyspneic and oxygen saturation drops below 80%. Given the symptoms, patient will require admission and further work-up for treatment of her COPD exacerbation. Patient will be admitted. Discussed with hospitalist. Stable at the time of admission. Patient is agreeable to this plan. - Vital Signs Vital signs: Temp Pulse Resp BP Pulse Ox 98.5 F 92 17 100/59 L 93 04/14/19 20:10 04/14/19 20:10 04/14/19 20:10 04/14/19 20:10 04/14/19 20:10 - Laboratory Result Diagrams: 04/14/19 10:53 04/14/19 10:53 Laboratory results interpreted by me: 04/14/19 04/14/19 10:53 10:53 RDW 15.0 H Lymph % (Auto) 10.6 L Glucose 125 H Critical Care Note - Critical Care Note Total time excluding time spent on procedures (mins): 35 - Evaluation and management of respiratory distress with multiple re-evaluations, consultation with hospitalist, coordination of admission Discharge - Discharge Clinical Impression: COPD exacerbation, Respiratory distress Condition: Stable Disposition: ADMITTED INPATIENT Admitting Provider: Delaney (Hospitalist) Unit Admitted: Telemetry
[2019-04-14] MEDS ORDERED: NICOTINE 14 MG/24 HR PATCH.TD24 TD PRN (15:16)
[2019-04-14] MEDS ORDERED: ALBUTEROL SULFATE 0.083% NEB 2.5 MG/3 ML AMPUL NEB PRN (15:17)
[2019-04-14] MEDS ORDERED: MAGNESIUM SULFATE/D5W 1 GM/100 ML RTUPB IV SCH (16:30)
[2019-04-14] MEDS ORDERED: INFLUENZA QUAD (6MOS+) 2019-20 VAC 0.5 ML SYR IM ONE (18:21)
[2019-04-14] MEDS: IPRATROPIUM/ALBUTEROL 0.5-2.5 MG/3 ML AMPUL NEB SCH (19:27)
--- NOTE | 2019-04-14 21:20 | EKG REPORT ---
SEVERITY:- ABNORMAL ECG - SINUS TACHYCARDIA BIATRIAL ABNORMALITIES LEFT AXIS DEVIATION CONSIDER RIGHT VENTRICULAR HYPERTROPHY : Confirmed by: Jeri Del Cid MD 14-Apr-2019 21:19:28
[2019-04-14] MEDS: HEPARIN SOD (PORCINE) 5,000 UNIT/ML 1 ML VIAL SUBCUT SCH (21:53)
[2019-04-14] MEDS: METHYLPREDNISOLONE INJ 40 MG/1 ML SDV IV SCH (21:54)
[2019-04-15] MEDS: IPRATROPIUM/ALBUTEROL 0.5-2.5 MG/3 ML AMPUL NEB SCH ×2 (01:55→07:57)
[2019-04-15] MEDS: HEPARIN SOD (PORCINE) 5,000 UNIT/ML 1 ML VIAL SUBCUT SCH (05:27)
[2019-04-15] MEDS: METHYLPREDNISOLONE INJ 40 MG/1 ML SDV IV SCH (05:27)
[2019-04-15] MEDS ORDERED: AZITHROMYCIN INJ 500 MG VIAL IV SCH (10:00)
[2019-04-15] MEDS ORDERED: AZITHROMYCIN 500 MG in DEXTROSE 5%-WATER 250 ML IV SCH (10:00)
[2019-04-15] MEDS ORDERED: AZITHROMYCIN 250 MG TABLET PO SCH (11:00)
[2019-04-15 11:18] VITALS: BP 100/59
--- NOTE | 2019-04-15 16:01 | PDOC H&P ---
History of Present Illness Admission Date/PCP: 04/14/19 14:50 RANJEET KAMARA PA-C Patient complains of: cough History of Present Illness: COLTEN JOHNSON is a 58 year old female with a past medical history of COPD (uses home O2 intermittently), diet-controlled diabetes mellitus and chronic cigarette smoking who presented with cough and shortness of breath. Patient says that she has been having increasingly productive cough since Wednesday. This was associated with increasing shortness of breath and wheezing to the point that she started having exertional dyspnea. She also reported subjective fever 2 days ago. She denies chest pain. She does report that she still smokes a pack of cigarettes a day. In the ER, she was noted to have tachypnea and bilateral wheezing. She was given IV steroids and breathing treatments with partial relief. Past Medical History Cardiac Medical History: Pulmonary Medical History: Reports: Asthma, Chronic Obstructive Pulmonary Disease (COPD) Neurological Medical History: Endocrine Medical History: Reports: Diabetes Mellitus Type 2 Musculoskeltal Medical History: Hematology: Past Surgical History Past Surgical History: Reports: Section, Orthopedic Surgery Social History Smoking Status: Current Every Day Smoker Frequency of Alcohol Use: Occasional Hx Recreational Drug Use: No Hx Prescription Drug Abuse: No Family History Family History: Reviewed & Not Pertinent Parental Family History Reviewed: Yes - no premature CAD Children Family History Reviewed: No Sibling(s) Family History Reviewed.: No Medication/Allergy Home Medications: Montelukast Sodium [Singulair 10 mg Tablet] 10 mg PO DAILY 07/16/17 Albuterol Sulfate [Proair HFA Inhalation Aerosol 8.5 gm MDI] 2 puff IH Q6HP PRN 04/14/19 Levocetirizine Dihydrochloride [Xyzal] 5 mg PO QHS 04/14/19 Umeclidinium Pinole [Incruse Ellipta] 1 inh IH DAILY 04/14/19 Albuterol Sulfate [Ventolin 0.083% Neb 2.5 mg/3 ml Ampul] 1 vial NEB Q8HP PRN 04/15/19 Fluticasone/Salmeterol [Advair HFA 230-21 mcg Inhaler] 1 puff IH BID #1 mdi 04/15/19 Fluticasone/Salmeterol [Advair HFA 230-21 mcg Inhaler] 2 puff IH Q12 04/15/19 Ipratropium/Albuterol Sulfate [Duoneb 3 ml Ampul] 3 ml NEB RTQ6HP PRN 04/15/19 Nicotine [Nicoderm 14 mg/24 Hr Transdermal Patch] 1 each TD DAILYP PRN #30 patch.[id number] 04/15/19 Olopatadine HCl 1 drop OU BID 04/15/19 Prednisone [Deltasone 20 mg Tablet] 20 mg PO BID 5 Days #10 tablet 04/15/19 Allergies/Adverse Reactions: No Known Allergies Allergy (Verified 04/14/19 10:22) Review of Systems All systems: reviewed and no additional remarkable complaints except as stated - As mentioned in HPI Physical Exam Vital Signs: Temp Pulse Resp BP Pulse Ox 99.8 F 107 H 29 H 109/70 94 04/14/19 10:23 04/14/19 10:23 04/14/19 11:01 04/14/19 11:01 04/14/19 11:01 Intake & Output 04/13/19 04/14/19 04/15/19 06:59 06:59 06:59 Intake Total 1000 Balance 1000 Weight 105 lb 9.623 oz General appearance: PRESENT: no acute distress, well-developed, well-nourished Head exam: PRESENT: atraumatic, normocephalic Eye exam: PRESENT: conjunctiva pink, EOMI, PERRLA. ABSENT: scleral icterus Ear exam: PRESENT: normal external ear exam Mouth exam: PRESENT: moist, tongue midline Neck exam: ABSENT: carotid bruit, JVD, lymphadenopathy, thyromegaly Respiratory exam: PRESENT: rhonchi, wheezes. ABSENT: rales Cardiovascular exam: PRESENT: RRR. ABSENT: diastolic murmur, rubs, systolic murmur Pulses: PRESENT: normal dorsalis pedis pul GI/Abdominal exam: PRESENT: normal bowel sounds, soft. ABSENT: distended, gu arding, mass, organolmegaly, rebound, tenderness Rectal exam: PRESENT: deferred Extremities exam: PRESENT: full ROM. ABSENT: calf tenderness, clubbing, pedal edema Neurological exam: PRESENT: alert, awake, oriented to person, oriented to place, oriented to time, oriented to situation, CN II-XII grossly intact. ABSENT: mot or sensory deficit Results Laboratory Results: 04/14/19 10:53 04/14/19 10:53 04/14/19 04/14/19 04/14/19 10:53 10:53 12:25 WBC 8.1 RBC 4.80 Hgb 14.8 Hct 43.2 MCV 90 MCH 30.8 MCHC 34.2 RDW 15.0 H Plt Count 161 Seg Neutrophils % 75.9 VBG pH VBG pCO2 VBG HCO3 VBG Base Excess Sodium 142.1 Potassium 3.8 Chloride 105 Carbon Dioxide 28 Anion Gap 9 BUN 13 Creatinine 0.52 Est GFR ( Amer) > 60 Glucose 125 H Lactic Acid 1.2 Calcium 9.3 Total Bilirubin 0.7 AST 30 Alkaline Phosphatase 70 Total Protein 7.2 Albumin 4.3 04/14/19 04/14/19 12:25 13:50 WBC RBC Hgb Hct MCV MCH MCHC RDW Plt Count Seg Neutrophils % VBG pH 7.39 VBG pCO2 44.7 VBG HCO3 26.7 VBG Base Excess 1.4 Sodium Potassium Chloride Carbon Dioxide Anion Gap BUN Creatinine Est GFR ( Amer) Glucose Lactic Acid 1.6 Calcium Total Bilirubin AST Alkaline Phosphatase Total Protein Albumin 04/14/19 04/14/19 10:53 13:50 Troponin I < 0.012 < 0.012 Impressions: Chest X-Ray 04/14/19 10:27 IMPRESSION: Chronic lung changes with no acute cardiopulmonary findings. Assessment and Plan - Diagnosis (1) COPD exacerbation Is this a current diagnosis for this admission?: Yes Plan: Continue IV steroids with Solu-Medrol 40 mg IV every 8. Start scheduled breathing treatments. Will add azithromycin. Sputum culture ordered. (2) Diabetes Is this a current diagnosis for this admission?: Yes Plan: Reports she has been off diabetic medications as this has been diet-controlled. (3) Tobacco abuse Is this a current diagnosis for this admission?: Yes Plan: Patient advised in length about smoking cessation. We will have her on nicotine patch. - Time Time Spent with patient: 25-34 minutes
--- NOTE | 2019-04-15 16:14 | PDOC DISCHARGE SUMMARY ---
Impression - Admit/DC Date/PCP Admission Date/Primary Care Provider: 04/14/19 14:50 RANJEET KAMARA PA-C Discharge Date: 04/15/19 - Discharge Diagnosis (1) COPD exacerbation Is this a current diagnosis for this admission?: Yes (2) Diabetes Is this a current diagnosis for this admission?: Yes (3) Tobacco abuse Is this a current diagnosis for this admission?: Yes - Additional Information Resuscitation Status: Full Code Discharge Diet: As Tolerated Discharge Activity: Activity As Tolerated Referrals: BARBER MONSON MD [[facility] STAFF] - Follow up as needed Prescriptions: Fluticasone/Salmeterol [Advair HFA 230-21 mcg Inhaler] 1 puff IH BID #1 mdi Prednisone [Deltasone 20 mg Tablet] 20 mg PO BID 5 Days #10 tablet Nicotine [Nicoderm 14 mg/24 Hr Transdermal Patch] 1 each TD DAILYP PRN #30 patch.td24 PRN Reason: Home Medications: Montelukast Sodium [Singulair 10 mg Tablet] 10 mg PO DAILY 07/16/17 Albuterol Sulfate [Proair HFA Inhalation Aerosol 8.5 gm MDI] 2 puff IH Q6HP PRN 04/14/19 Levocetirizine Dihydrochloride [Xyzal] 5 mg PO QHS 04/14/19 Umeclidinium [place] [Incruse Ellipta] 1 inh IH DAILY 04/14/19 Albuterol Sulfate [Ventolin 0.083% Neb 2.5 mg/3 ml Ampul] 1 vial NEB Q8HP PRN 04/15/19 Fluticasone/Salmeterol [Advair HFA 230-21 mcg Inhaler] 1 puff IH BID #1 mdi 04/15/19 Fluticasone/Salmeterol [Advair HFA 230-21 mcg Inhaler] 2 puff IH Q12 04/15/19 Ipratropium/Albuterol Sulfate [Duoneb 3 ml Ampul] 3 ml NEB RTQ6HP PRN 04/15/19 Nicotine [Nicoderm 14 mg/24 Hr Transdermal Patch] 1 each TD DAILYP PRN #30 patch.td24 04/15/19 Olopatadine HCl 1 drop OU BID 04/15/19 Prednisone [Deltasone 20 mg Tablet] 20 mg PO BID 5 Days #10 tablet 04/15/19 History of Present Illiness History of Present Illness: COLTEN JOHNSON is a 58 year old female with a past medical history of COPD (uses home O2 intermittently), diet-controlled diabetes mellitus and chronic cigarette smoking who presented with cough and shortness of breath. Patient says that she has been having increasingly productive cough since Wednesday. This was associated with increasing shortness of breath and wheezing to the point that she started having exertional dyspnea. She also reported subjective fever 2 days ago. She denies chest pain. She does report that she still smokes a pack of cigarettes a day. In the ER, she was noted to have tachypnea and bilateral wheezing. She was given IV steroids and breathing treatments with partial relief. Hospital Course Hospital Course: Patient was admitted for COPD exacerbation patient was started on IV steroids, breathing treatments and azithromycin. She promptly improved and returned to her baseline the next day. She uses O2 intermittently at home. She has not been using her Advair recently as she ran out her supplies. She was given a new prescription for Advair. She will continue 5 more days of prednisone. Physical Exam Vital Signs: Temp Pulse Resp BP Pulse Ox 97.7 F 97 16 100/59 L 92 04/15/19 11:15 04/15/19 11:15 04/15/19 11:15 04/15/19 11:15 04/15/19 11:15 Intake & Output 04/14/19 04/15/19 04/16/19 06:59 06:59 06:59 Intake Total 2590 Balance 2590 Weight 110 lb 14.28 oz General appearance: PRESENT: no acute distress, well-developed, well-nourished Head exam: PRESENT: atraumatic, normocephalic Eye exam: PRESENT: conjunctiva pink, EOMI, PERRLA. ABSENT: scleral icterus Ear exam: PRESENT: normal external ear exam Mouth exam: PRESENT: moist, tongue midline Neck exam: ABSENT: carotid bruit, JVD, lymphadenopathy, thyromegaly Respiratory exam: PRESENT: rhonchi. ABSENT: rales, wheezes Cardiovascular exam: PRESENT: RRR. ABSENT: diastolic murmur, rubs, systolic murmur Pulses: PRESENT: normal dorsalis pedis pul GI/Abdominal exam: PRESENT: normal bowel sounds, soft. ABSENT: distended, guarding, mass, organolmegaly, rebound, tenderness Rectal exam: PRESENT: deferred Extremities exam: PRESENT: full ROM. ABSENT: calf tenderness, clubbing, pedal edema Neurological exam: PRESENT: alert, awake, oriented to person, oriented to place, oriented to time, oriented to situation, CN II-XII grossly intact. ABSENT: motor sensory deficit Results Laboratory Results: WBC 8.1 10^3/uL (4.0-10.5) 04/14/19 10:53 RBC 4.80 10^6/uL (3.72-5.28) 04/14/19 10:53 Hgb 14.8 g/dL (12.0-15.5) 04/14/19 10:53 Hct 43.2 % (36.0-47.0) 04/14/19 10:53 MCV 90 fl (80-97) 04/14/19 10:53 MCH 30.8 pg (27.0-33.4) 04/14/19 10:53 MCHC 34.2 g/dL (32.0-36.0) 04/14/19 10:53 RDW 15.0 % (11.5-14.0) H 04/14/19 10:53 Plt Count 161 10^3/uL (150-450) 04/14/19 10:53 Lymph % (Auto) 10.6 % (13-45) L 04/14/19 10:53 King % (Auto) 12.8 % (3-13) 04/14/19 10:53 Eos % (Auto) 0.2 % (0-6) 04/14/19 10:53 Baso % (Auto) 0.5 % (0-2) 04/14/19 10:53 Absolute Neuts (auto) 6.2 10^3/uL (1.7-8.2) 04/14/19 10:53 Absolute Lymphs (auto) 0.9 10^3/uL (0.5-4.7) 04/14/19 10:53 Absolute Monos (auto) 1.0 10^3/uL (0.1-1.4) 04/14/19 10:53 Absolute Eos (auto) 0.0 10^3/uL (0.0-0.6) 04/14/19 10:53 Absolute Basos (auto) 0.0 10^3/uL (0.0-0.2) 04/14/19 10:53 Seg Neutrophils % 75.9 % (42-78) 04/14/19 10:53 PT 13.3 SEC (11.4-15.4) 04/14/19 10:53 INR 1.01 04/14/19 10:53 VBG pH 7.39 (7.30-7.42) 04/14/19 12:25 VBG pCO2 44.7 mmHg (35-63) 04/14/19 12:25 VBG HCO3 26.7 mmol/L (20-32) 04/14/19 12:25 VBG Base Excess 1.4 mmol/L 04/14/19 12:25 Sodium 142.1 mmol/L (137-145) 04/14/19 10:53 Potassium 3.8 mmol/L (3.6-5.0) 04/14/19 10:53 Chloride 105 mmol/L (98-107) 04/14/19 10:53 Carbon Dioxide 28 mmol/L (22-30) 04/14/19 10:53 Anion Gap 9 (5-19) 04/14/19 10:53 BUN 13 mg/dL (7-20) 04/14/19 10:53 Creatinine 0.52 mg/dL (0.52-1.25) 04/14/19 10:53 Est GFR ( Amer) > 60 (>60) 04/14/19 10:53 Est GFR (MDRD) Non-Af > 60 (>60) 04/14/19 10:53 Glucose 125 mg/dL (75-110) H 04/14/19 10:53 POC Glucose 229 mg/dL (70-110) H 04/15/19 08:24 Hemoglobin A1c % 6.0 % (4.7-6.0) 04/14/19 10:53 Lactic Acid 1.0 mmol/L (0.7-2.1) 04/14/19 17:09 Calcium 9.3 mg/dL (8.4-10.2) 04/14/19 10:53 Total Bilirubin 0.7 mg/dL (0.2-1.3) 04/14/19 10:53 Direct Bilirubin 0.4 mg/dL (0.0-0.4) 04/14/19 10:53 Neonat Total Bilirubin Not Reportable 04/14/19 10:53 Neonat Direct Bilirubin Not Reportable 04/14/19 10:53 Neonat Indirect Bili Not Reportable 04/14/19 10:53 AST 30 U/L (14-36) 04/14/19 10:53 ALT 16 U/L (<35) 04/14/19 10:53 Alkaline Phosphatase 70 U/L (38-126) 04/14/19 10:53 Troponin I < 0.012 ng/mL 04/14/19 13:50 Total Protein 7.2 g/dL (6.3-8.2) 04/14/19 10:53 Albumin 4.3 g/dL (3.5-5.0) 04/14/19 10:53 Influenza A (Rapid) NEGATIVE (NEGATIVE) 04/14/19 12:41 Influenza B (Rapid) NEGATIVE (NEGATIVE) 04/14/19 12:41 04/14/19 04/14/19 10:53 13:50 Troponin I < 0.012 < 0.012 Impressions: Chest X-Ray 04/14/19 10:27 IMPRESSION: Chronic lung changes with no acute cardiopulmonary findings. Stroke Is this a Stroke Patient?: No Acute Heart Failure - Is this a Heart Failure Patient?: No
== END 2019-04-15 12:07 | disposition home or self-care (01) ==
LOC: ER 10:16 → INTOOBSV 14:50 → EH 14:50 → 5 17:49
PROVIDERS: ADMIT Internal Medicine; ATTEND Internal Medicine
DX: J44.1 Chronic obstructive pulmonary disease with (acute) exacerbation (principal); E11.9 Type 2 diabetes mellitus without complications; F17.210 Nicotine dependence, cigarettes, uncomplicated; Z79.899 Other long term (current) drug therapy; Z99.81 Dependence on supplemental oxygen; Z23 Encounter for immunization
CPT/HCPCS: 93005; 94640 ×4; 99291; 96361; 96375; 96365; 36415; 87040; 87070; 87205; 82962; 83605; 85025; 85610; 87077; 80053; 84484; 83036; 82803; 87804; 87150 ×26; 71045; 90686; 93010; G0378 ×3; J1644 ×2; J2920 ×2; J2930; J3475; J3490 ×2; J7030; J1956; J7620 ×2